=== PATIENT | male | born 1970 | race Caucasian/White ===

== ENCOUNTER 2017-12-12 06:59 | Inpatient (IN) ==
[2017-12-12] MEDS ORDERED: Famotidine 20 MG/2 ML VIAL IVP ONE (07:15)
[2017-12-12] MEDS ORDERED: predniSONE 20 MG TABLET PO ONE (07:15)
--- NOTE | 2017-12-12 07:32 | Emergency Department Note ---
Disposition Clinical Impression: ST segment depression, SIRS (systemic inflammatory response syndrome) Chest pain Qualifiers: Chest pain type: unspecified Qualified Code(s): R07.9 - Chest pain, unspecified Disposition: Admitted As Inpatient Condition: Undetermined Time of Disposition: 09:49 General Adult HPI - General Chief complaint: ED Chest Pain Stated complaint: Chest Pain, Rash, Skin Crawling Time Seen by Provider: 12/12/17 07:06 Source: patient, family Mode of arrival: ambulatory Limitations: no limitations Nursing Notes Reviewed: Yes Vital Signs Reviewed: Yes - History of Present Illness HPI Narrative: 46-year-old male with history of hypothyroidism, arrives to the emergency department with multiple complaints. The patient states that 2 days ago he started complaining of nausea and vomiting. No associated abdominal pain. Patient states that overnight he started experiencing a rash with some associated chest pain and dyspnea. The patient states upon arrival but his chest pain has subsided but he still feels mildly short of breath and is tachypneic upon walking to the bed. The patient states that his chest pain was more of a pressure sensation without any radiation and it was retrosternal. He states that his nausea and vomiting has resolved at this time as well. The rash is primarily located as the patient states on his trunk and bilateral upper extremities. There is some rash that was noted on his palms per his . There have been noted takes that the patient has found on him but is unsure if they bit him. He denies any fevers, chills but the patient is mildly diaphoretic on examination. Patient denies any other complaints at this time. He denies any abdominal pain, fevers, chills, unilateral weakness, paresthesias , headaches, nuchal rigidity or meningismus. Patient does admit to fevers to attending physician. Pain Scale: 9 - Related Data Home Medications Medication Instructions Recorded Confirmed Levothyroxine [Synthroid] 75 mcg PO 0630 12/12/17 12/12/17 Oxaprozin [Daypro] 600 mg PO BID 12/12/17 12/12/17 Travoprost [Travatan Z] 1 drop OP DAILY 12/12/17 12/12/17 Allergies Allergy/AdvReac Type Severity Reaction Status Date / Time aspirin Allergy Hypertensio Verified 12/12/17 07:01 n All systems ED: reviewed and negative except as stated. Constitutional: Reports: fever, weakness. Denies: chills ENT ED: Denies: throat pain, congestion, dysphagia Cardiovascular: Reports: chest pain, dyspnea on exertion, edema. Denies: palpitations, orthopnea, syncope Respiratory: Reports: dyspnea. Denies: cough, wheezes, sputum production Gastrointestinal: Reports: nausea, vomiting. Denies: abdominal pain, diarrhea, constipation, hematemesis, melena, hematochezia Genitourinary: Denies: urgency, dysuria Musculoskeletal: Reports: myalgia. Denies: back pain, neck pain, arthralgia Integumentary: Reports: rash. Denies: abrasion, lesions, change in hair/nails Neurological: Reports: weakness. Denies: headache, numbness, paresthesias, confusion Past Medical History - Past Medical History Attestation: Yes The following information was validated with the patient. Source: patient Medical history: Reports: thyroid disease Surgical history: Reports: appendectomy Psychiatric history: Reports: no psych history - Social History Smoking Status: Former smoker Alcohol use: Reports: occasionally Drug use: Reports: none Physical Exam - General Limitations: no limitations General appearance: alert, in no apparent distress - Head Head exam: atraumatic, normocephalic, normal inspection - Eye Eye exam: Present: normal appearance, PERRL, EOMI - ENT ENT exam: normal exam, normal oropharynx, mucous membranes moist - Neck Neck exam: Present: normal inspection, full ROM, trachea midline - Chest Chest inspection: Present: normal inspection, symmetric chest wall rise - Respiratory Respiratory exam: Present: normal lung sounds bilaterally - Cardiovascular Cardiovascular exam: Present: normal rhythm, tachycardia, normal heart sounds - Abdominal Exam Abdominal exam: Present: soft, Non-Tender, scar. Absent: tenderness, distention , guarding, rebound, rigidity, Martini's sign, Rovsing's sign, tenderness at McBurney's Point, pulsatile mass - Extremities Exam Extremities exam: Present: normal inspection, full ROM. Absent: tenderness, pedal edema - Neurological Exam Neurological exam: Present: alert, oriented X3, CN II-XII intact, normal gait - Skin Skin exam: Present: warm, dry, intact, normal color, rash (urticaria along bilateral UE and trunk.) Course Vital Signs Temperature 98.2 F 12/12/17 07:01 Pulse Rate 116 12/12/17 07:01 Respiratory Rate 22 07/04/18 07:01 Blood Pressure 132/90 12/12/17 07:01 O2 Sat by Pulse Oximetry 91 12/12/17 07:01 Temperature 98.6 F 12/12/17 11:07 Pulse Rate 90 12/12/17 11:07 Respiratory Rate 18 12/12/17 11:07 Blood Pressure 128/78 12/12/17 11:07 O2 Sat by Pulse Oximetry 97 12/12/17 11:16 Oxygen Delivery Oxygen Delivery Room Air,Nasal Cannula Medical Decision Making - MDM Narrative Medical decision making narrative: Patient's workup in the emergency department in restraints a leukocytosis with a neutrophil count. The patient has no elevation in troponin. He did have an elevation in d-dimer so a CTA was performed which demonstrated no pulmonary embolus but was noted some left lower lobe atelectasis without pneumonia. The patient's urinalysis was obtained which demonstrates no acute process. EKG does demonstrate some mild ST depression that is noted. Given the patient's chest pain we will admit the patient to the hospital to trend troponins and likely receive an echocardiogram. It is possible concern for diffuse ST depression but this does not appear consistent with pericarditis at this time. The patient likely has a viral illness given the patient's symptoms but infectious etiology of his symptoms cannot be eliminated at this time. The patient will be admitted for observation. Was made aware and agrees to plan. He was administered 3 L of IV fluids. Blood cultures and lactic acid were obtained. Lactic acid demonstrates no acute process. Patient is allergic to aspirin so he was not given any in the ED. Patient made aware and agrees to plan. No further questions or concerns. Hospitalist toribio. No other recommendations. Spoke to Dr. Rodrigeuz who had no further recommendations. Accepted by Dr. Grace. - Lab Data Lab results reviewed: Yes I reviewed the patient's lab results. Result diagrams: 12/12/17 07:14 12/12/17 07:14 Lab Results 12/12/17 12/12/17 12/12/17 Range/Units 07:14 07:14 07:14 WBC 16.2 H (4.3-11.1) K/mcL RBC 6.66 H (4.19-5.50) M/mcL Hgb 20.8 H (12.9-16.9) g/dL Hct 58.1 H (37.5-50.1) % MCV 87.2 (83.0-100.0) fL MCH 31.2 (28.0-33.3) pg MCHC 35.8 H (31.6-35.5) g/dL RDW 13.9 (11.5-14.5) % Plt Count 360 (140-400) K/mcL MPV 10.0 (9.4-12.4) fL Immature Gran % 0.6 (0-4) % Seg Neutrophils % 80.1 % Lymphocytes % 12.5 % Monocytes % 4.9 % Eosinophils % 1.6 % Basophils % 0.3 % Neutrophils # 13.0 H (1.6-8.9) K/mcL Lymphocytes # 2.0 (0.6-4.6) K/mcL Monocytes # 0.8 (0.0-1.3) K/mcL Eosinophils # 0.3 (0.0-0.6) K/mcL Basophils # 0.1 (0.0-0.2) K/mcL ESR (0-10) mm/hr D-Dimer 3362 H (0-500) ng/mLFEU Sodium 133 L (136-145) mEq/L Potassium 3.8 (3.5-5.1) mEq/L Chloride 107 (98-107) mEq/L Carbon Dioxide 16 L (23-29) mEq/L BUN 18 (6-20) mg/dL Creatinine 1.04 (0.70-1.30) mg/dL Est GFR ( Amer) > 60 (> 60) Est GFR (Non-Af Amer) > 60 (> 60) BUN/Creatinine Ratio 17 (6-26) Glucose 267 H (70-105) mg/dL Calculated Osmolality 287 (280-300) Lactic Acid (0.5-2.2) mmol/L Calcium 8.8 (8.6-10.3) mg/dL Total Bilirubin 0.5 (0.3-1.0) mg/dL AST 29 (13-39) Units/L ALT 54 H (7-52) Units/L Alkaline Phosphatase 76 (34-104) Units/L Troponin I < 0.03 (< 0.04) ng/mL Serum Total Protein 6.5 (6.4-8.9) g/dL Albumin 4.0 (3.5-5.7) g/dL Globulin 2.5 (2.4-3.5) g/dL Albumin/Globulin Ratio 1.6 (1.1-2.2) Urine Color (Yellow) Urine Clarity (Clear) Urine pH (5.0-8.0) pH Units Ur Specific [place] (1.010-1.025) Urine Protein (Neg-Trace) mg/dL Urine Glucose (UA) (Normal) mg/dL Urine Ketones (Negative) mg/dL Urine Blood (Negative) Urine Nitrite (Negative) Urine Bilirubin (Negative) Urine Urobilinogen (Normal) mg/dL Ur Leukocyte Esterase (Negative) Urine Microscopic RBC (0-3) per hpf Urine Microscopic WBC (0-3) per hpf Ur Squamous Epith Cells (None-Few) per lpf Urine Bacteria (None-Few) per hpf Hyaline Casts (None-Few) per lpf Ur Culture Indicated? (NO) Lyme Total Antibody (Negative) 12/12/17 12/12/17 12/12/17 Range/Units 07:27 07:58 09:13 WBC (4.3-11.1) K/mcL RBC (4.19-5.50) M/mcL Hgb (12.9-16.9) g/dL Hct (37.5-50.1) % MCV (83.0-100.0) fL MCH (28.0-33.3) pg MCHC (31.6-35.5) g/dL RDW (11.5-14.5) % Plt Count (140-400) K/mcL MPV (9.4-12.4) fL Immature Gran % (0-4) % Seg Neutrophils % % Lymphocytes % % Monocytes % % Eosinophils % % Basophils % % Neutrophils # (1.6-8.9) K/mcL Lymphocytes # (0.6-4.6) K/mcL Monocytes # (0.0-1.3) K/mcL Eosinophils # (0.0-0.6) K/mcL Basophils # (0.0-0.2) K/mcL ESR (0-10) mm/hr D-Dimer (0-500) ng/mLFEU Sodium (136-145) mEq/L Potassium (3.5-5.1) mEq/L Chloride (98-107) mEq/L Carbon Dioxide (23-29) mEq/L BUN (6-20) mg/dL Creatinine (0.70-1.30) mg/dL Est GFR ( Amer) (> 60) Est GFR (Non-Af Amer) (> 60) BUN/Creatinine Ratio (6-26) Glucose (70-105) mg/dL Calculated Osmolality (280-300) Lactic Acid 2.1 (0.5-2.2) mmol/L Calcium (8.6-10.3) mg/dL Total Bilirubin (0.3-1.0) mg/dL AST (13-39) Units/L ALT (7-52) Units/L Alkaline Phosphatase (34-104) Units/L Troponin I (< 0.04) ng/mL Serum Total Protein (6.4-8.9) g/dL Albumin (3.5-5.7) g/dL Globulin (2.4-3.5) g/dL Albumin/Globulin Ratio (1.1-2.2) Urine Color Yellow (Yellow) Urine Clarity Clear (Clear) Urine pH 6.0 (5.0-8.0) pH Units Ur Specific [place] > 1.030 H (1.010-1.025) Urine Protein Negative (Neg-Trace) mg/dL Urine Glucose (UA) Normal (Normal) mg/dL Urine Ketones Negative (Negative) mg/dL Urine Blood Trace H (Negative) Urine Nitrite Negative (Negative) Urine Bilirubin Negative (Negative) Urine Urobilinogen Normal (Normal) mg/dL Ur Leukocyte Esterase Negative (Negative) Urine Microscopic RBC 0-3 (0-3) per hpf Urine Microscopic WBC 3-5 H (0-3) per hpf Ur Squamous Epith Cells Few (None-Few) per lpf Urine Bacteria None Seen (None-Few) per hpf Hyaline Casts None Seen (None-Few) per lpf Ur Culture Indicated? NO (NO) Lyme Total Antibody Negative (Negative) 12/12/17 12/12/17 Range/Units 09:52 10:43 WBC (4.3-11.1) K/mcL RBC (4.19-5.50) M/mcL Hgb (12.9-16.9) g/dL Hct (37.5-50.1) % MCV (83.0-100.0) fL MCH (28.0-33.3) pg MCHC (31.6-35.5) g/dL RDW (11.5-14.5) % Plt Count (140-400) K/mcL MPV (9.4-12.4) fL Immature Gran % (0-4) % Seg Neutrophils % % Lymphocytes % % Monocytes % % Eosinophils % % Basophils % % Neutrophils # (1.6-8.9) K/mcL Lymphocytes # (0.6-4.6) K/mcL Monocytes # (0.0-1.3) K/mcL Eosinophils # (0.0-0.6) K/mcL Basophils # (0.0-0.2) K/mcL ESR 8 (0-10) mm/hr D-Dimer (0-500) ng/mLFEU Sodium (136-145) mEq/L Potassium (3.5-5.1) mEq/L Chloride (98-107) mEq/L Carbon Dioxide (23-29) mEq/L BUN (6-20) mg/dL Creatinine (0.70-1.30) mg/dL Est GFR ( Amer) (> 60) Est GFR (Non-Af Amer) (> 60) BUN/Creatinine Ratio (6-26) Glucose (70-105) mg/dL Calculated Osmolality (280-300) Lactic Acid 2.0 (0.5-2.2) mmol/L Calcium (8.6-10.3) mg/dL Total Bilirubin (0.3-1.0) mg/dL AST (13-39) Units/L ALT (7-52) Units/L Alkaline Phosphatase (34-104) Units/L Troponin I (< 0.04) ng/mL Serum Total Protein (6.4-8.9) g/dL Albumin (3.5-5.7) g/dL Globulin (2.4-3.5) g/dL Albumin/Globulin Ratio (1.1-2.2) Urine Color (Yellow) Urine Clarity (Clear) Urine pH (5.0-8.0) pH Units Ur Specific [place] (1.010-1.025) Urine Protein (Neg-Trace) mg/dL Urine Glucose (UA) (Normal) mg/dL Urine Ketones (Negative) mg/dL Urine Blood (Negative) Urine Nitrite (Negative) Urine Bilirubin (Negative) Urine Urobilinogen (Normal) mg/dL Ur Leukocyte Esterase (Negative) Urine Microscopic RBC (0-3) per hpf Urine Microscopic WBC (0-3) per hpf Ur Squamous Epith Cells (None-Few) per lpf Urine Bacteria (None-Few) per hpf Hyaline Casts (None-Few) per lpf Ur Culture Indicated? (NO) Lyme Total Antibody (Negative) - Radiology Data Radiology results reviewed: Yes I reviewed the patient's radiology results. Chest X-Ray 12/12/17 07:14 IMPRESSION: No radiographic evidence of acute cardiopulmonary process. D/ / 12/12/2017 07:56:53 Jack Powell MD / vasquez Interpreting Provider: Jack Powell MD Chest CTA 12/12/17 07:57 IMPRESSION: No evidence of pulmonary embolism or acute pulmonary abnormality. Slight left lower lobe atelectasis. D/ / Neyamr Reeves MD / Neymar Reeves MD Interpreting Provider: Neymar Reeves MD - EKG Data EKG #1 EKG attestation: Yes I reviewed and interpreted this EKG. EKG results narrative: Heart rate [address]pm. Sin[address] tachy[address]. Mild ST depression noted in leads 2, aVF, V3 through V6. No ST elevation noted. Right bundle branch block noted. EKG #2. Heart rate 114. Sinus tachycardia. No ST elevation noted. Right bundle branch block noted.
[2017-12-12 07:40] LABS: Basophils # 0.1 K/mcL (0.0-0.2); Basophils % 0.3 %; Eosinophils # 0.3 K/mcL (0.0-0.6); Eosinophils % 1.6 %; Hemoglobin 20.8 g/dL (12.9-16.9); Immature Granulocytes % 0.6 % (0-4); Lymphocytes % 12.5 %; Mean Corpuscular HGB Conc 35.8 g/dL (31.6-35.5); Mean Corpuscular Hemoglobin 31.2 pg (28.0-33.3); Mean Corpuscular Volume 87.2 fL (83.0-100.0); Monocytes # 0.8 K/mcL (0.0-1.3); Monocytes % 4.9 %; Platelet Count 360 K/mcL (140-400); Red Blood Count 6.66 M/mcL (4.19-5.50); Red Cell Distribution Width 13.9 % (11.5-14.5); Segmented Neutrophils % 80.1 %
[2017-12-12 07:41] LABS: Hematocrit 58.1 % (37.5-50.1)
--- NOTE | 2017-12-12 07:45 | Emergency Department Note ---
Disposition Clinical Impression: ST segment depression, SIRS (systemic inflammatory response syndrome) Chest pain Qualifiers: Chest pain type: unspecified Qualified Code(s): R07.9 - Chest pain, unspecified Disposition: Admitted As Inpatient General Adult HPI - General Chief complaint: ED Chest Pain Stated complaint: Chest Pain, Rash, Skin Crawling Time Seen by Provider: 12/12/17 07:06 Source: patient, family Mode of arrival: ambulatory Limitations: no limitations - History of Present Illness Pain Scale: 9 - Related Data Home Medications Medication Instructions Recorded Confirmed Levothyroxine [Synthroid] 75 mcg PO 0630 12/12/17 12/12/17 Oxaprozin [Daypro] 600 mg PO BID 12/12/17 12/12/17 Travoprost [Travatan Z] 1 drop OP DAILY 12/12/17 12/12/17 Allergies Allergy/AdvReac Type Severity Reaction Status Date / Time aspirin Allergy Hypertensio Verified 12/12/17 07:01 n Constitutional: Reports: weakness. Denies: fever, chills ENT ED: Denies: throat pain, congestion, dysphagia Cardiovascular: Reports: chest pain, dyspnea on exertion, edema. Denies: palpitations, orthopnea, syncope Respiratory: Reports: dyspnea. Denies: cough, wheezes, sputum production Gastrointestinal: Reports: nausea, vomiting. Denies: abdominal pain, diarrhea, constipation, hematemesis, melena, hematochezia Genitourinary: Denies: urgency, dysuria Musculoskeletal: Reports: myalgia. Denies: back pain, neck pain, arthralgia Integumentary: Reports: rash. Denies: abrasion, lesions, change in hair/nails Neurological: Reports: weakness. Denies: headache, numbness, paresthesias, confusion Past Medical History - Past Medical History Medical history: Reports: thyroid disease Surgical history: Reports: appendectomy Psychiatric history: Reports: no psych history - Social History Smoking Status: Former smoker Alcohol use: Reports: occasionally Drug use: Reports: none Physical Exam - General Limitations: no limitations General appearance: alert, in no apparent distress Course Vital Signs Temperature 98.2 F 12/12/17 07:01 Pulse Rate 116 12/12/17 07:01 Respiratory Rate 22 12/12/17 07:01 Blood Pressure 132/90 12/12/17 07:01 O2 Sat by Pulse Oximetry 91 12/12/17 07:01 Temperature 98.6 F 12/12/17 11:07 Pulse Rate 90 12/12/17 11:07 Respiratory Rate 18 12/12/17 11:07 Blood Pressure 128/78 12/12/17 11:07 O2 Sat by Pulse Oximetry 97 12/12/17 11:16 Oxygen Delivery Oxygen Delivery Room Air,Nasal Cannula Medical Decision Making - Lab Data Result diagrams: 12/12/17 07:14 12/12/17 07:14 Lab Results 12/12/17 12/12/17 12/12/17 Range/Units 07:14 07:14 07:14 WBC 16.2 H (4.3-11.1) K/mcL RBC 6.66 H (4.19-5.50) M/mcL Hgb 20.8 H (12.9-16.9) g/dL Hct 58.1 H (37.5-50.1) % MCV 87.2 (83.0-100.0) fL MCH 31.2 (28.0-33.3) pg MCHC 35.8 H (31.6-35.5) g/dL RDW 13.9 (11.5-14.5) % Plt Count 360 (140-400) K/mcL MPV 10.0 (9.4-12.4) fL Immature Gran % 0.6 (0-4) % Seg Neutrophils % 80.1 % Lymphocytes % 12.5 % Monocytes % 4.9 % Eosinophils % 1.6 % Basophils % 0.3 % Neutrophils # 13.0 H (1.6-8.9) K/mcL Lymphocytes # 2.0 (0.6-4.6) K/mcL Monocytes # 0.8 (0.0-1.3) K/mcL Eosinophils # 0.3 (0.0-0.6) K/mcL Basophils # 0.1 (0.0-0.2) K/mcL ESR (0-10) mm/hr D-Dimer 3362 H (0-500) ng/mLFEU Sodium 133 L (136-145) mEq/L Potassium 3.8 (3.5-5.1) mEq/L Chloride 107 (98-107) mEq/L Carbon Dioxide 16 L (23-29) mEq/L BUN 18 (6-20) mg/dL Creatinine 1.04 (0.70-1.30) mg/dL Est GFR ( Amer) > 60 (> 60) Est GFR (Non-Af Amer) > 60 (> 60) BUN/Creatinine Ratio 17 (6-26) Glucose 267 H (70-105) mg/dL Calculated Osmolality 287 (280-300) Lactic Acid (0.5-2.2) mmol/L Calcium 8.8 (8.6-10.3) mg/dL Total Bilirubin 0.5 (0.3-1.0) mg/dL AST 29 (13-39) Units/L ALT 54 H (7-52) Units/L Alkaline Phosphatase 76 (34-104) Units/L Troponin I < 0.03 (< 0.04) ng/mL Serum Total Protein 6.5 (6.4-8.9) g/dL Albumin 4.0 (3.5-5.7) g/dL Globulin 2.5 (2.4-3.5) g/dL Albumin/Globulin Ratio 1.6 (1.1-2.2) Urine Color (Yellow) Urine Clarity (Clear) Urine pH (5.0-8.0) pH Units Ur Specific [place] (1.010-1.025) Urine Protein (Neg-Trace) mg/dL Urine Glucose (UA) (Normal) mg/dL Urine Ketones (Negative) mg/dL Urine Blood (Negative) Urine Nitrite (Negative) Urine Bilirubin (Negative) Urine Urobilinogen (Normal) mg/dL Ur Leukocyte Esterase (Negative) Urine Microscopic RBC (0-3) per hpf Urine Microscopic WBC (0-3) per hpf Ur Squamous Epith Cells (None-Few) per lpf Urine Bacteria (None-Few) per hpf Hyaline Casts (None-Few) per lpf Ur Culture Indicated? (NO) Lyme Total Antibody (Negative) 12/12/17 12/12/17 12/12/17 Range/Units 07:27 07:58 09:13 WBC (4.3-11.1) K/mcL RBC (4.19-5.50) M/mcL Hgb (12.9-16.9) g/dL Hct (37.5-50.1) % MCV (83.0-100.0) fL MCH (28.0-33.3) pg MCHC (31.6-35.5) g/dL RDW (11.5-14.5) % Plt Count (140-400) K/mcL MPV (9.4-12.4) fL Immature Gran % (0-4) % Seg Neutrophils % % Lymphocytes % % Monocytes % % Eosinophils % % Basophils % % Neutrophils # (1.6-8.9) K/mcL Lymphocytes # (0.6-4.6) K/mcL Monocytes # (0.0-1.3) K/mcL Eosinophils # (0.0-0.6) K/mcL Basophils # (0.0-0.2) K/mcL ESR (0-10) mm/hr D-Dimer (0-500) ng/mLFEU Sodium (136-145) mEq/L Potassium (3.5-5.1) mEq/L Chloride (98-107) mEq/L Carbon Dioxide (23-29) mEq/L BUN (6-20) mg/dL Creatinine (0.70-1.30) mg/dL Est GFR ( Amer) (> 60) Est GFR (Non-Af Amer) (> 60) BUN/Creatinine Ratio (6-26) Glucose (70-105) mg/dL Calculated Osmolality (280-300) Lactic Acid 2.1 (0.5-2.2) mmol/L Calcium (8.6-10.3) mg/dL Total Bilirubin (0.3-1.0) mg/dL AST (13-39) Units/L ALT (7-52) Units/L Alkaline Phosphatase (34-104) Units/L Troponin I (< 0.04) ng/mL Serum Total Protein (6.4-8.9) g/dL Albumin (3.5-5.7) g/dL Globulin (2.4-3.5) g/dL Albumin/Globulin Ratio (1.1-2.2) Urine Color Yellow (Yellow) Urine Clarity Clear (Clear) Urine pH 6.0 (5.0-8.0) pH Units Ur Specific [place] > 1.030 H (1.010-1.025) Urine Protein Negative (Neg-Trace) mg/dL Urine Glucose (UA) Normal (Normal) mg/dL Urine Ketones Negative (Negative) mg/dL Urine Blood Trace H (Negative) Urine Nitrite Negative (Negative) Urine Bilirubin Negative (Negative) Urine Urobilinogen Normal (Normal) mg/dL Ur Leukocyte Esterase Negative (Negative) Urine Microscopic RBC 0-3 (0-3) per hpf Urine Microscopic WBC 3-5 H (0-3) per hpf Ur Squamous Epith Cells Few (None-Few) per lpf Urine Bacteria None Seen (None-Few) per hpf Hyaline Casts None Seen (None-Few) per lpf Ur Culture Indicated? NO (NO) L[place] Total Antibody Negative (Negative) 12/12/17 12/12/17 Range/Units 09:52 10:43 WBC (4.3-11.1) K/mcL RBC (4.19-5.50) M/mcL Hgb (12.9-16.9) g/dL Hct (37.5-50.1) % MCV (83.0-100.0) fL MCH (28.0-33.3) pg MCHC (31.6-35.5) g/dL RDW (11.5-14.5) % Plt Count (140-400) K/mcL MPV (9.4-12.4) fL Immature Gran % (0-4) % Seg Neutrophils % % Lymphocytes % % Monocytes % % Eosinophils % % Basophils % % Neutrophils # (1.6-8.9) K/mcL Lymphocytes # (0.6-4.6) K/mcL Monocytes # (0.0-1.3) K/mcL Eosinophils # (0.0-0.6) K/mcL Basophils # (0.0-0.2) K/mcL ESR 8 (0-10) mm/hr D-Dimer (0-500) ng/mLFEU Sodium (136-145) mEq/L Potassium (3.5-5.1) mEq/L Chloride (98-107) mEq/L Carbon Dioxide (23-29) mEq/L BUN (6-20) mg/dL Creatinine (0.70-1.30) mg/dL Est GFR ( Amer) (> 60) Est GFR (Non-Af Amer) (> 60) BUN/Creatinine Ratio (6-26) Glucose (70-105) mg/dL Calculated Osmolality (280-300) Lactic Acid 2.0 (0.5-2.2) mmol/L Calcium (8.6-10.3) mg/dL Total Bilirubin (0.3-1.0) mg/dL AST (13-39) Units/L ALT (7-52) Units/L Alkaline Phosphatase (34-104) Units/L Troponin I (< 0.04) ng/mL Serum Total Protein (6.4-8.9) g/dL Albumin (3.5-5.7) g/dL Globulin (2.4-3.5) g/dL Albumin/Globulin Ratio (1.1-2.2) Urine Color (Yellow) Urine Clarity (Clear) Urine pH (5.0-8.0) pH Units Ur Specific [place] (1.010-1.025) Urine Protein (Neg-Trace) mg/dL Urine Glucose (UA) (Normal) mg/dL Urine Ketones (Negative) mg/dL Urine Blood (Negative) Urine Nitrite (Negative) Urine Bilirubin (Negative) Urine Urobilinogen (Normal) mg/dL Ur Leukocyte Esterase (Negative) Urine Microscopic RBC (0-3) per hpf Urine Microscopic WBC (0-3) per hpf Ur Squamous Epith Cells (None-Few) per lpf Urine Bacteria (None-Few) per hpf Hyaline Casts (None-Few) per lpf Ur Culture Indicated? (NO) Lyme Total Antibody (Negative) Attestation Statement - Attestation Attestation: I examined this patient and my medical decision-making was reviewed with the Resident Physician. I agree with the documented findings, disposition and treatment plan as described except to the extent set forth below. Patient was in so the ED with chief complaint of not feeling well. Symptoms started with vomiting and diarrhea a few days ago. Diarrhea has persisted. Vomiting stopped but he still dry heaving. Intermittent fevers. Now he has developed a rash. No other people with similar symptoms. He does admit to having ticks on them but none that he knows were attached. He also admits to mosquito bites. He had some chest pain but he thought that was from dry heaving. Short of breath. Swelling in his hands and feet. On examination he does not appear to be in any acute distress. He does have some pitting edema to his ankles and hands. Urticarial rash to his antecubital fossa. Maculopapular rash to the trunk with some target lesions. Plan. Septic workup. He is afebrile here. He is tachycardic. Oxygen saturation 91%. EKG with some ST depressions with no old for comparison. Likely admission. Patient has a leukocytosis. No source found. Possibly viral gastroenteritis. Rash is improved. ST depressions have improved with IV hydration. Patient is admitted. Chest X-Ray 12/12/17 07:14 IMPRESSION: No radiographic evidence of acute cardiopulmonary process. D/ / 12/12/2017 07:56:53 Jack Powell MD / [email or web address] Interpreting Provider: Jack Powell MD Chest CTA 12/12/17 07:57 IMPRESSION: No evidence of pulmonary embolism or acute pulmonary abnormality. Slight left lower lobe atelectasis. D/ / Neymar Reeves MD / Neymar Reeves MD Interpreting Provider: Neymar Reeves MD
[2017-12-12] MEDS ORDERED: Isovue-370 500 ML INFUS..BTL IV ONE ×2 (07:57→10:15)
[2017-12-12] MEDS: 0.9 % Sodium Chloride 1,000 ML IVC SCH ×5 (07:58→23:17)
[2017-12-12 08:02] LABS: Alanine Aminotransferase 54 Units/L (7-52); Albumin/Globulin Ratio 1.6 (1.1-2.2); Alkaline Phosphatase 76 Units/L (34-104); Aspartate Amino Transferase 29 Units/L (13-39); BUN/Creatinine Ratio 17 (6-26); Bilirubin,Total 0.5 mg/dL (0.3-1.0); Blood Urea Nitrogen 18 mg/dL (6-20); Calcium 8.8 mg/dL (8.6-10.3); Carbon Dioxide 16 mEq/L (23-29); Chloride 107 mEq/L (98-107); Globulin 2.5 g/dL (2.4-3.5); Glucose 267 mg/dL (70-105); Osmolality,Calculated 287 (280-300); Potassium 3.8 mEq/L (3.5-5.1); Sodium 133 mEq/L (136-145); Total Protein 6.5 g/dL (6.4-8.9); eGFR For African Americans > 60 (> 60); eGFR For Non-African Americans > 60 (> 60)
[2017-12-12 08:03] LABS: Troponin I < 0.03 ng/mL (< 0.04)
[2017-12-12] MEDS ORDERED: 0.9 % Sodium Chloride 1,000 ML IVC ONE (08:06)
[2017-12-12 09:26] LABS: Bilirubin,Urine Negative (Negative); Blood,Urine Trace (Negative); Clarity,Urine Clear (Clear); Color,Urine Yellow (Yellow); Glucose,Urine (UA) Normal (Normal); Ketones,Urine Negative (Negative); Leukocyte Esterase,Urine Negative (Negative); Nitrite,Urine Negative (Negative); Protein,Urine Negative (Neg-Trace); Specific Gravity,Urine > 1.030 (1.010-1.025); Urobilinogen,Urine Normal (Normal)
[2017-12-12 09:29] LABS: Bacteria,Urine None Seen per hpf (None-Few); Hyaline Casts,Urine None Seen per lpf (None-Few); RBC,Urine 0-3 per hpf (0-3); Squamous Epithelial Cell,Urine Few per lpf (None-Few)
[2017-12-12] MEDS ORDERED: Piperacillin/Tazobactam 3.375 GM in 0.9 % Sodium Chloride Mini Bag 100 ML IVPB ONE (09:47)
[2017-12-12] MEDS ORDERED: Naloxone 0.4 MG/ML INJ IVP PRN (09:52)
[2017-12-12] MEDS ORDERED: Doxycycline 100 MG CAPSULE PO SCH (10:00)
--- NOTE | 2017-12-12 10:23 | Internal Med History&Physical ---
Date of Encounter: 12/12/17 Time of Encounter: 10:00 Internal Medicine - H&P: HPI Chief complaint: Nausea, vomiting, diarrhea since sunday evening History of present illness: Mr. Vega is a 46 year old male with no significant pmh presenting with complaints of nausea, vomiting and diarrhea since sunday evening and a rash today. Patient notes he had a meat sub at about 12 noon on sunday after which he began to have severe symtoms with multiple episode s of diarrhea ,nausea and vomiting. Last episode was this am. His says she also noticed a rash this am around the hands, inner forearm, abdomen and back and that's why he came into the ER. He also complains of subjective fevers. [place] also [place] exposed to ticks all though, he doesn't recall any specific tick bite. In the Er he was nted to be tachycardic with EKG showing some possible st changes and cardiolgy was consulted. He was also given a cocktail of steroids and antihistamines with improvement in the rash. Past Med Surg Social Fam HX - Past Medical History Medical history: thyroid disease Psychiatric history: no psych history - Past Surgical History Surgical History: appendectomy - Social History Smoking Status: Former smoker Alcohol use: occasionally Drug use: none Internal Medicine - H&P: Meds Levothyroxine [Synthroid] 75 mcg PO 0630 12/12/17 [History] Oxaprozin [Daypro] 600 mg PO BID 12/12/17 [History] Travoprost [Travatan Z] 1 drop OP DAILY 12/12/17 [History] 3 Allergy/AdvReac Type Severity Reaction Status Date / Time aspirin Allergy Hypertensio Verified 12/12/17 07:01 n All Systems PM: A 10-system review of systems was performed and is negative for pertinent findings except as documented above in the HPI. - Constitutional Constitutional: fever(s), malaise - EENT Eyes: no change in vision, no discharge, no pain, no photophobia Ears: no ear discharge, no ear pain, no tinnitus Nose, mouth and throat: no dysphagia, no nasal discharge, no neck pain, no sore throat - Cardiovascular Cardiovascular ROS IM: no chest pain, no diaphoresis, no dyspnea, no lightheadedness, no palpitations, no syncope - Respiratory Respiratory: no cough, no dyspnea, no wheezing, no excessive phlegm production - Gastrointestinal Gastrointestinal: abdominal pain, diarrhea, no hematemesis, no hematochezia, no melena, no nausea, no vomiting - Musculoskeletal Musculoskeletal ROS IM: no numbness, no tingling - Integumentary Integumentary IM: no rash, no unusual bruising - Neurological Neurological ROS: no confusion, no convulsions, no focal weakness, no numbness, no tingling, no tremor(s) - Hematologic/Lymphatic Hematologic/Lymphatic: no easy bruising - Constitutional Vitals: Temp Pulse Resp BP Pulse Ox 98.2 F 119 18 135/87 97 12/12/17 07:01 12/12/17 09:00 12/12/17 09:00 12/12/17 09:00 12/12/17 09:00 - Head Head exam: Present: atraumatic, normocephalic - Eye Eye exam: Present: PERRL, conjuntiva pink, sclera anicteric Pupils: Present: PERRL - Neck Neck exam general surgery: Present: supple, trachea midline. Absent: lymphadenopathy - Respiratory Respiratory exam: Present: CTAB. Absent: accessory muscle use, rales, rhonchi, wheezes - Cardiovascular Cardiovascular exam: Present: RRR, +S1, +S2. Absent: diastolic murmur, gallop, rubs, systolic murmur - GI/Abdominal GI/Abdominal exam: Present: normal bowel sounds, soft, no peritoneal signs. Absent: distended, tenderness - Extremities Exam Extremities exam: Present: warm, radial pulses palpable and symmetrical. Absent : calf tenderness, cyanotic, pedal edema Additional comments: rash noted on forearms - Neurological Exam Neurological exam: Present: CN II-XII intact, oriented X3, no focal deficits. Absent: pronater drift, facial droop, speech deficit - Skin Skin exam: Present: dry, intact Internal Med - H&P Results - Labs CBC & Chem 7: 12/12/17 07:14 12/12/17 07:14 - Assessment and plan (1) SIRS (systemic inflammatory response syndrome) Current Visit: Yes Status: Acute Assessment and plan: SIRS r/o Sepsis, WBC 16, tachycardic. Possible source. Gastroenteritis. Obtain stool studies with GI panel and c diff. Follow blood cultures. Follow up ESR and CRP. Start on ciprofloxacin and flagyl. IC consulted and recommended adding doxycycline to antibiotic regimen and doing a stool pcr for possible EHEC vs salmonella typhi in light of diarrhea, leukocytosis and rash. Will follow up ID recs (2) Acute gastroenteritis Current Visit: Yes Status: Acute Assessment and plan: See #1. Follow up stool studies and ct abdomen. Continue antibiotics (3) Rash and nonspecific skin eruption Current Visit: Yes Status: Acute Assessment and plan: Unclear etiology. Seems to be resolving with prednisone and antihistamines. Continue to monitor. Follow up [facility] studies due to exposure to ticks. Lyme titers negative. (4) ST segment depression Current Visit: Yes Status: Acute Assessment and plan: Cardiology on board. Had new EKG showing no st segment depression Possibly demand ischemia. Follow up cardiology recs (5) Thyroid disease Current Visit: Yes Status: Acute Assessment and plan: Unclear history. Follow up TSH as possible etiolgy for tachycardia (6) DVT prophylaxis Current Visit: Yes Status: Acute Assessment and plan: Heparin sc (7) Erythrocytosis Current Visit: Yes Status: Acute Assessment and plan: May be secondary to dehydration. Hydrate and repeat labs - Time Spent With Patient Total time spent is greater than 50% in coordination of care (as documented) at patient's floor/unit and/or counseling patient:
[2017-12-12] MEDS ORDERED: Ondansetron 4 MG/2 ML VIAL IVP PRN (10:32)
[2017-12-12] MEDS ORDERED: *HR* Morphine 2 MG/ML SYRINGE IVP PRN (10:34)
[2017-12-12] MEDS: Doxycycline 100 MG CAPSULE PO SCH ×2 (11:56→21:30)
[2017-12-12 12:07] LABS: C-Reactive Protein 10 mg/L (Less than 10)
[2017-12-12 13:39] LABS: Thyroid Stimulating Hormone 4.236 mcIU/mL (0.340-5.600)
[2017-12-12] MEDS: MetroNIDAZOLE 500 MG/100 ML 500 MG/100 ML BAG IVPB SCH ×2 (17:31→23:17)
[2017-12-12] MEDS ORDERED: Piperacillin/Tazobactam 3.375 GM in 0.9 % Sodium Chloride Mini Bag 100 ML IVPB SCH (18:00)
[2017-12-13 00:01] LABS: Adenovirus F 40/41 PCR Not detected (Not detect); Astrovirus PCR Not detected (Not detect); C.difficile Toxin A/B by PCR Not detected (Not detect); Campylobacter by PCR Not detected (Not detect); Cryptosporidium by PCR Not detected (Not detect); Cyclospora cayetanensis PCR Not detected (Not detect); E. coli O157 by PCR Not detected (Not detect); Entamoeba histolytica PCR Not detected (Not detect); Enteroaggregative E.coli(EAEC) Not detected (Not detect); Enteropathogenic E.coli(EPEC) Not detected (Not detect); Enterotoxigenic E.coli (ETEC) Not detected (Not detect); Giardia lamblia PCR Not detected (Not detect); Norovirus GI/GII PCR Not detected (Not detect); Plesiomonas shigelloides PCR Not detected (Not detect); Rotavirus A PCR Not detected (Not detect); Salmonella PCR Not detected (Not detect); Sapovirus PCR Not detected (Not detect); Shig/EnteroinvasiveE coli EIEC Not detected (Not detect); Shigalike tox-prod E coli STEC Not detected (Not detect); Vibrio PCR Not detected (Not detect); Vibrio cholerae PCR Not detected (Not detect); Yersinia enterocolitica PCR Not detected (Not detect)
[2017-12-13 04:44] LABS: Basophils % 0.3 %; Eosinophils # 0.8 K/mcL (0.0-0.6); Eosinophils % 7.4 %; Hematocrit 42.8 % (37.5-50.1); Immature Granulocytes % 0.4 % (0-4); Lymphocytes # 2.9 K/mcL (0.6-4.6); Lymphocytes % 25.3 %; Mean Corpuscular HGB Conc 34.6 g/dL (31.6-35.5); Mean Corpuscular Volume 89.7 fL (83.0-100.0); Mean Platelet Volume 9.8 fL (9.4-12.4); Monocytes # 0.9 K/mcL (0.0-1.3); Neutrophils # 6.6 K/mcL (1.6-8.9); Platelet Count 234 K/mcL (140-400); Red Blood Count 4.77 M/mcL (4.19-5.50); Red Cell Distribution Width 13.1 % (11.5-14.5); Segmented Neutrophils % 58.6 %
[2017-12-13 04:50] LABS: Hemoglobin 14.8 g/dL (12.9-16.9)
[2017-12-13 05:07] LABS: BUN/Creatinine Ratio 13 (6-26); Blood Urea Nitrogen 11 mg/dL (6-20); Calcium 8.1 mg/dL (8.6-10.3); Carbon Dioxide 21 mEq/L (23-29); Chloride 111 mEq/L (98-107); Glucose 122 mg/dL (70-105); Magnesium 1.5 mg/dL (1.6-2.6); Osmolality,Calculated 287 (280-300); Potassium 3.5 mEq/L (3.5-5.1); Sodium 138 mEq/L (136-145); eGFR For African Americans > 60 (> 60); eGFR For Non-African Americans > 60 (> 60)
[2017-12-13] MEDS: *HR* Heparin 5,000 UNIT/ML VIAL SQ SCH ×2 (06:52→18:35)
[2017-12-13] MEDS: MetroNIDAZOLE 500 MG/100 ML 500 MG/100 ML BAG IVPB SCH ×2 (07:50→15:54)
[2017-12-13] MEDS: 0.9 % Sodium Chloride 1,000 ML IVC SCH ×2 (07:51→18:34)
[2017-12-13] MEDS: Doxycycline 100 MG CAPSULE PO SCH ×2 (07:51→19:35)
--- NOTE | 2017-12-13 09:54 | Infectious Disease Consult ---
Date of Encounter: 12/13/17 Time of Encounter: 09:52 Assessment and Plan (1) Sepsis Status: Acute Assessment and plan: 2/4 SIRS criteria on admission; leukocytosis 16.2, tachycardia - Unknown source at this time; possible gastroenteritis - Stool panel was negative; Stool PCR, r/o EHEC vs salmonella typhii - 3 sets of blood CX are pending - Currently on doxycycline 100 mg PO BID and Flagyl 500 mg IV Q8; day 2 of antibiotics Qualifiers: Sepsis type: sepsis due to unspecified organism Qualified Code(s): A41.9 - Sepsis, unspecified organism (2) Acute gastroenteritis Status: Acute Assessment and plan: - CT scan of the abdomen and pelvis demonstrated changes associated with fatty liver disease - No acute abdominal process was found - Stool panel negative (3) Rash and nonspecific skin eruption Status: Resolved Assessment and plan: Patient presented with a rash on the trunk and upper extremities; etiology unknown - He reports that he lives in the [facility]; admits to finding several ticks on his person - He is unsure if he was bitten - In the emergency department, patient was given prednisone and antihistamines; rash subsequently improved - Lyme titers have been negative - Continue doxycycline (4) ST segment depression Status: Acute Assessment and plan: EKG performed in the emergency department demonstrated mild ST depression noted in leads 2, aVF, V3 through V6; Right bundle branch block was present; no ST elevation present, Sinus tachycardia - Cardiology is consulted (5) Thyroid disease Status: Acute Assessment and plan: - Management per primary team Infectious Disease HPI - Data of Consult Consult date: 12/13/17 Requesting Physician: Corinna Contreras MD Primary Care Provider: Jasprete Curtis, - Consult Narrative Reason for consult: Nausea/vomiting, maculopapular rash History of present illness: Patient is a 46-year-old male who presented to the ED on 12/12/17 with a chief complaint of N/V/D and rash on the trunk. We are consulted for antibiotic regimen recommendations regarding patients rash and possible gastroenteritis. Patient has PMH of hypothyroidism who presented to ED with the chief complaint of malaise, N/V, and a rash on his trunk and b/l extremities. Patient reported that his vomiting and diarrhea started a few days prior. He complained of intermittent fevers. Also reported having SOB exacerbated by exertion and mild chest discomfort described as a pressure sensation. He reported that he had a meat sub at approximately 12 PM on Sunday after which he began to have these severe symptoms of diarrhea, n/v. [place]; admitted to having found several ticks on him; unsure if they had been him or not. Patient had pitting edema to his ankles and hands on physical examination. Urticarial rash was present on antecubital fossa. Macular papular rash was present on the trunk with some target lesions. Patient was mildly diaphoretic. He denied having any abdominal pain, chills, weakness, paresthesias, headaches , or nuchal rigidity. Vital signs on arrival were as follows: Temperature 98.2, HR 116, RR 22, BP 132/ 90, O2 sat 91. CXR showed no acute process. CTA of the chest showed no evidence of PE, slight LLL atelectasis. EKG demonstrated ST depressions. Laboratory analysis demonstrated an elevated white count of 16.2 with left shift. D-dimer was elevated at 3362. Troponin was negative. UA unremarkable. 3 sets of blood CX are currently pending. He was given a combination of prednisone and Benadryl for his rash; subsequently improved. He was also given 3 L of IV fluids. Blood cultures were obtained. Cardiology was consulted for patients EKG changes. Was initially started on Zosyn; Currently on doxycycline 100 mg by mouth twice a day and Flagyl 500 mg IV every 8; day 2 of antibiotics. Borrelia PCR pending. CT scan of the abdomen and pelvis demonstrated changes consistent with fatty liver disease. Stool panel was ordered; was negative. Lyme total antibody was also negative. Patient was seen and examined at bedside. Patient reports that he is feeling much better than he did on admission. He denies having any nausea, vomiting, diarrhea, fever, or chills. Reports that the rash that he initially had on his trunk and his upper extremities has since resolved. He does state that he has some residual redness in his chest area. Patient notes that he did not notice any target rashes when his rash first started. [place]; has noted some ticks on his neck and back, but does not feel that he was bitten. Denies having any history of Lyme's disease or RMSF. Patient is currently retired; worked at [employer]. Denies the use of tobacco, occasionally drinks alcohol. Denies having any recent travel or sick contacts. CC: Corinna Contreras MD Past Med Surg Social Fam HX - Past Medical History Medical history: thyroid disease Additional medical history: arthritis, dergenative disk Psychiatric history: no psych history - Past Surgical History Surgical History: appendectomy - Social History Smoking Status: Former smoker Alcohol use: occasionally Drug use: none Infectious Disease-CN:Meds Levothyroxine [Synthroid] 75 mcg PO 0630 12/12/17 [History] Oxaprozin [Daypro] 600 mg PO BID 12/12/17 [History] Travoprost [Travatan Z] 1 drop OP DAILY 12/12/17 [History] 3 Allergy/AdvReac Type Severity Reaction Status Date / Time aspirin Allergy Hypertensio Verified 12/12/17 07:01 n Review of systems: 10 point review of systems done, negative other for what mentioned in history of present illness - Constitutional Constitutional: Absent: chills, fever(s), lethargy, malaise, weakness - Respiratory Respiratory: Absent: dyspnea, wheezing, snoring, stridor - Musculoskeletal Musculoskeletal: Absent: arthralgias, myalgias, tingling - Integumentary Integumentary: Present: rash (Patient has red discoloration across his chest and upper extremities.). Absent: dry skin, pruritus, skin ulcer, sores, swelling Exam - Constitutional Vitals: Temp Pulse Resp BP Pulse Ox 97.7 F 73 16 126/76 95 12/13/17 06:54 12/13/17 06:54 12/13/17 06:54 12/13/17 06:54 12/13/17 06:54 General appearance: no acute distress Exam: Does not appear toxic. Pleasant - Head Head exam: Present: atraumatic, normocephalic - Eye Eye exam: Present: EOMI, PERRL, sclera anicteric - ENT ENT exam: Present: mucous membranes moist Additional comments: No oral lesions - Neck Neck exam: Present: full ROM. Absent: meningismus - Respiratory Respiratory exam: Present: CTAB. Absent: rales, rhonchi, stridor, wheezes, tachypnea - Cardiovascular Cardiovascular exam: Present: RRR, +S1, +S2. Absent: diastolic murmur, systolic murmur - GI/Abdominal GI/Abdominal exam: Present: soft. Absent: tenderness - Extremities Exam Extremities exam: Present: full ROM. Absent: pedal edema - Back Exam Back exam: Absent: CVA tenderness (L), CVA tenderness (R) - Neurological Exam Neurological exam: Present: alert, oriented X3, no focal deficits - Psychiatric Psychiatric exam: Present: normal affect, normal mood - Skin Skin exam: Present: dry, intact, rash Infectious Disease CN: Results - Labs CBC & Chem 7: 12/13/17 04:08 12/13/17 04:08 Serology: Serology 12/12/17 Range/Units 22:38 Stl C. cayetanensis PCR Not detected (Not detect) Stool Rotavirus A PCR Not detected (Not detect) Stl Adenov F 40/41 PCR Not detected (Not detect) Stool Astrovirus (PCR) Not detected (Not detect) Stool Campylobacter PCR Not detected (Not detect) Stl C. diff Tox A/B PCR Not detected (Not detect) Stool Cryptosporidium PCR Not detected (Not detect) Stl Sh Tox Pr E STEC PCR Not detected (Not detect) Stool E coli O157 PCR Not detected (Not detect) Stl Enterotoxigenic E PCR Not detected (Not detect) Stool EPEC (PCR) Not detected (Not detect) Stool EAEC (PCR) Not detected (Not detect) Stl E. histolytica PCR Not detected (Not detect) Stool Giardia Lamblia PCR Not detected (Not detect) Stool Salmonella PCR Not detected (Not detect) Stool Sapovirus (PCR) Not detected (Not detect) Stl P. shigelloides PCR Not detected (Not detect) Stl Shigella/EIEC PCR Not detected (Not detect) St Y.enterocolitica PCR Not detected (Not detect) Stool Vibrio (PCR) Not detected (Not detect) Stl Vibrio cholerae PCR Not detected (Not detect) Stl Norovirus GI/GII PCR Not detected (Not detect) Stl GI Panel (PCR) Com See below Consult Discharge Plan - Plan Referrals: Jaspreet Curtis DO [Primary Care Provider] - - Attending Attestation I examined this patient and my medical decision-making was reviewed with the Resident Physician. I agree with the documented findings, disposition and treatment plan as described except to the extent set forth below. This is an addendum to original report dictated by resident physician. Please refer to residents note for full detail. Patient is a 46-year-old gentleman with no significant past medical history except for thyroid disease presented to [place] on 12/12 with nausea vomiting diarrhea that started on 12/10 in the afternoon. Patient also apparently was having a rash around the hands and her forearms abdomen and back so he presented to the emergency department for evaluation. Patient also lives in the [facility] and apparently has been exposed to ticks. Since admission, patient has been afebrile with a MAXIMUM TEMPERATURE of 98.9 Fahrenheit. Patient was tachycardic initially with a heart rate up to 119. Patient was also moderately tachypneic. Presenting labs revealed a WBC of 16.2 with neutrophil predominance of 80%. D-dimer was checked and it came back elevated at 3362. Chem-7 was obtained and revealed no acute kidney injury. CRP was mildly elevated at 10. Patient had a urinalysis done which was really not impressive. A Lyme antibody was obtained and came back negative. Patient had a CT chest which showed no evidence of pulmonary embolism or acute pulmonary abnormality. CT abdomen and pelvis was obtained with contrast that showed no definite evidence of acute intra-abdominal abnormality. There was persistent findings of fatty infiltrate of the liver and nonobstructive bilateral intrarenal calculi. I was called regarding this patient over the weekend and I was also concerned for possible tick bite versus salmonellosis versus enterohemorrhagic Escherichia coli. Based on the clinical picture that the explained to me over the phone I ordered stool for PCR and start the patient on doxycycline. A/P: Sepsis etiology not clear? Could be due to gastroenteritis vs other Acute gastroenteritis Rash etiology? DIC vs viral exanthema vs other? Inflammatory markers not elevated but D dimer 3362 Tick bite REcommenadtions: Repeat CBC in the Am to see if platelets continue to drop Tick bite no signs of a tick bite illness but it is sill possible; continue doxycycline Duration of treatment 7 days May d/c flagyl/Cipro at this time Aggressive hydration. Patient has 2 dogs and has chicken home. I would like to check salmonella
--- NOTE | 2017-12-13 10:10 | Electrophysiology Consult Note ---
<Pauline Carlson - Last Filed: 12/13/17 10:32> Date of Encounter: 12/13/17 Time of Encounter: 10:00 Assessment and Plan (1) Right bundle branch block Current Visit: Yes Status: Acute ECG shows RBBB, 114 BPM. new compared to prior ECG dated 2011. Possible rate dependent RBBB. Tachycardia likely secondary to gastroenteritis. No chest pain symptoms. Troponin negative. No further recommendations from EP as inpatient. Recommend outpatient follow-up with PCP. (2) Chest pain Current Visit: Yes Status: Acute Atypical chest pain. No ischemic ECG changes noted. Reports chest discomfort while dry heaving, does not appear to be cardiac in etiology. No further inpatient testing warranted, follow-up with PCP. Qualifiers: Chest pain type: chest pain on breathing Qualified Code(s): R07.1 - Chest pain on breathing; R07.81 - Pleurodynia (3) SIRS (systemic inflammatory response syndrome) Current Visit: Yes Status: Acute Likely secondary to acute gastroenteritis. Primary following. Patient reports symptom improvement. Discussion w patient/family: The assessment and plan as outlined above was discussed with the patient and/or family members who expressed understanding and agreement. All questions were answered. Thank you for involving us in the care of your patient. Please call with any questions. The patient will be discussed and reviewed with Dr. Rodriguez; changes to be made accordingly. History of Present Illness Consult date: 12/13/17 Requesting physician: Corinna Contreras Consult reason: ECG changes Chief complaint: Rash, N/V/D History of present illness: Mr. Vega is a 46 year old male with borderline DMII who presented to the ED with complaints of rash. Reports symptom onset a few hours prior to presentation. Reports 1-2 history of nausea, vomiting, and diarrhea prior to onset of rash. Reports chest discomfort with dry heaving/vomiting--otherwise no other CV symptoms. ECG upon arrival demonstrated RBBB, 114 BPM. CRP and WBC elevated. D-Dimer 3362 , CTA negative for PE. No prior CV testing reported. Past Med Surg Social Fam HX - Past Medical History Attestation: Yes The following information was validated with the patient. Source: patient Medical history: thyroid disease Additional medical history: arthritis, dergenative disk Psychiatric history: no psych history - Past Surgical History Surgical History: appendectomy - Social History Smoking Status: Former smoker Alcohol use: occasionally Drug use: none Medications and Allergies Levothyroxine [Synthroid] 75 mcg PO 0630 12/12/17 [History] Oxaprozin [Daypro] 600 mg PO BID 12/12/17 [History] Travoprost [Travatan Z] 1 drop OP DAILY 12/12/17 [History] 3 Allergy/AdvReac Type Severity Reaction Status Date / Time aspirin Allergy Hypertensio Verified 12/12/17 07:01 n All Systems Review: The remainder of the systems were reviewed and are negative - Cardiovascular Cardiovascular: as per HPI Physical Examination Vital Signs, Last 4 Hours Temp Pulse Resp BP Pulse Ox 12/13/17 06:54 97.7 F 73 16 126/76 95 General: Conversant, No Apparent Distress HEENT: Atraumatic, Normocephaly, Mucus Membranes Moist Cardiac: Reg Rate and Rhythm, Normal S1 and S2 Lungs: Normal Breath Sounds Neuro: Alert and responsive Abdomen: Soft Skin: No rashes noted on visualized skin Musculoskeletal: No Chest Wall Tenderness Extremities: No Edema, Normal Pulses Results 12/13/17 04:08 12/13/17 04:08 Lab Results 12/13/17 12/13/17 04:08 04:08 WBC 11.3 H Hgb 14.8 D Hct 42.8 Plt Count 234 Sodium 138 Potassium 3.5 Chloride 111 H Carbon Dioxide 21 L BUN 11 Creatinine 0.83 Glucose 122 H Calcium 8.1 L Magnesium 1.5 L Active Medications Diphenhydramine HCl (Benadryl) 25 mg IVP Q6HR PRN PRN Reason: Itching Stop: 06/13/18 10:34 Doxycycline Hyclate (Doxycycline) 100 mg PO BID [facility] Stop: 06/13/18 11:01 Last Admin: 12/13/17 07:51 Dose: 100 mg Heparin Sodium (Porcine) (Heparin) 5,000 unit SQ Q12HCO [facility] Stop: 06/14/18 06:31 Last Admin: 12/13/17 06:52 Dose: 5,000 unit Sodium Chloride (0.9 % Sodium Chloride) 1,000 mls @ 125 mls/hr IVC .Q8H [facility] Stop: 06/13/18 10:01 Last Admin: 12/13/17 07:51 Dose: 125 mls/hr Ciprofloxacin Lactate (Cipro Premix 400 Mg/200 Ml) 400 mg in 200 mls @ 200 mls/ hr IVPB Q12HR [facility] Stop: 06/13/18 18:01 Last Admin: 12/13/17 05:37 Dose: 200 mls/hr Metronidazole (Flagyl Premix 500 Mg/100 Ml) 500 mg in 100 mls @ 100 mls/hr IVPB Q8HR [facility] Stop: 06/13/18 16:01 Last Admin: 12/13/17 07:50 Dose: 100 mls/hr Morphine Sulfate (Morphine Sulfate) 1 mg IVP Q6HR PRN; Protocol PRN Reason: Analgesia Stop: 06/13/18 10:35 Naloxone HCl (Narcan) 0.4 mg IVP Q2MIN PRN PRN Reason: SEE COMMENTS Stop: 06/13/18 09:53 Ondansetron HCl (Zofran) 4 mg IVP Q6HR PRN; Protocol PRN Reason: Nausea And Vomiting Stop: 06/13/18 10:33 - Imaging and Cardiology Other Results: 12 hour tele: avg HR=84 SR. No events noted. - EKG Interpretation EKG results cardiology: personally reviewed Consult Discharge Plan - Plan Referrals: Jaspreet Curtis DO [Primary Care Provider] - <Joey Rodriguez - Last Filed: 12/13/17 11:39> Date of Encounter: 12/13/17 - Attending Attestation I have personally performed a face to face evaluation on this patient. I have reviewed and agree with the care plan. History and Exam by me shows: Presents with symptoms suggestive of viral syndrome. EKG showed RBBB which is new but likely tachycardia related. Doubt acute coronary syndrome. Assessment and Plan (1) Right bundle branch block Current Visit: Yes Status: Acute ECG shows RBBB, 114 BPM. new compared to prior ECG dated 2011. Possible rate dependent RBBB. Tachycardia likely secondary to gastroenteritis. No chest pain symptoms. Troponin negative. No further recommendations from EP as inpatient. Recommend outpatient follow-up with PCP. Discussion w patient/family: The assessment and plan as outlined above was discussed with the patient and/or family members who expressed understanding and agreement. All questions were answered. Thank you for involving us in the care of your patient. Please call with any questions. History of Present Illness History of present illness: Mr. Vega is a 46 year old male All Systems Review: The remainder of the systems were reviewed and are negative Physical Examination Vital Signs, Last 4 Hours Temp Pulse Resp BP Pulse Ox 12/13/17 10:58 98.2 F 72 20 142/80 95 General: Conversant, No Apparent Distress HEENT: Atraumatic, Normocephaly, Mucus Membranes Moist Neck: No JVD, Normal carotid pulses Cardiac: Reg Rate and Rhythm, Normal S1 and S2, No Murmur Lungs: Normal Breath Sounds, No Wheeze, Rales, Rhonchi Neuro: Alert and responsive, No focal deficits noted Abdomen: Soft, Non-Tender Musculoskeletal: No Chest Wall Tenderness Results 12/13/17 04:08 12/13/17 04:08 Lab Results 12/13/17 12/13/17 04:08 04:08 WBC 11.3 H Hgb 14.8 D Hct 42.8 Plt Count 234 Sodium 138 Potassium 3.5 Chloride 111 H Carbon Dioxide 21 L BUN 11 Creatinine 0.83 Glucose 122 H Calcium 8.1 L Magnesium 1.5 L
[2017-12-13] MEDS ORDERED: Acetaminophen 325 MG TABLET PO PRN (11:55)
--- NOTE | 2017-12-13 14:50 | Internal Med Progress Note ---
Date of Encounter: 12/13/17 Time of Encounter: 13:00 - Assessment and plan (1) SIRS (systemic inflammatory response syndrome) Current Visit: Yes Status: Acute Assessment and plan: Tachycardia had resolved and leukocytosis improved after IVF and initiation of Abx Uncertain exact etiology of gastroenteritis. Rash concerning for possible tick- borne disease although Lyme testing had been negative so far. No longer meet SIRS criteria. resolved. (2) Acute gastroenteritis Current Visit: Yes Status: Acute Assessment and plan: Symptoms had resolved. No more diarrhea or N/V. Reported suspicious food intake. Likely viral. IVF support. All symptoms resolved. (3) Rash and nonspecific skin eruption Current Visit: Yes Status: Resolved Assessment and plan: Rash on trunk as well as palm and soles reported at home. Quickly resolved after antihistamine and prednisone in ED. Lyme testing so far negative. Has reported findings ticks, but none attached to his body. Unsure etiology at this time. Continue with doxycycline. Infectious Disease following. (4) ST segment depression Current Visit: Yes Status: Acute Assessment and plan: Initial EKG with RBBB and tachycardia as reviewed by EP. Tachycardia likely 2/2 dehydration from gastroenteritis symptoms. Had now resolved. No chest pain, Troponin negative. No further intervention by EP at this time. Can follow with PCP outpatient. (5) Thyroid disease Current Visit: Yes Status: Acute Assessment and plan: Unclear history of thyroid disease TSH WNL. Asymptomatic. continue to monitor. (6) Erythrocytosis Current Visit: Yes Status: Resolved Assessment and plan: Resolved. Secondary to severe dehydration from fluid loss diarrhea and n/v. - Time Spent With Patient Total time spent is greater than 50% in coordination of care (as documented) at patient's floor/unit and/or counseling patient: - Subjective Interval history: Reports feeling well today denying any complaints. Stated that the diarrhea had resolved as well as nausea and vomiting. Feels much better since he came in and got IVF. - Constitutional Vitals: Temp Pulse Resp BP Pulse Ox 98.2 F 72 20 142/80 95 12/13/17 10:58 12/13/17 10:58 12/13/17 10:58 12/13/17 10:58 12/13/17 10:58 Exam: General: Alert and oriented. Obese. Skin: Normal color, few red spots on chest, no gaffney lesions. HEENT: EOMI, pupils equal, round and reactive. Cardiovascular: Regular rate, regular rhythm. No murmurs appreciated. Lungs:Normal breath sounds, no wheezes or crackles. Abdomen:Soft, non-tender, no rigidity. Obese. Extremities:No deformity, no edema or tenderness, no joint swelling or clubbing. Neurological:Normal cognition, no weakness, no numbness. Rest of the physical exam is non contributory Internal Medicine: Result - Labs CBC & Chem 7: 12/13/17 04:08 12/13/17 04:08 Labs: Short CBC 12/13/17 Range/Units 04:08 WBC 11.3 H (4.3-11.1) K/mcL Hgb 14.8 D (12.9-16.9) g/dL Hct 42.8 (37.5-50.1) % Plt Count 234 (140-400) K/mcL Neutrophils # 6.6 (1.6-8.9) K/mcL BMP 12/13/17 04:08 Sodium 138 Potassium 3.5 Chloride 111 H Carbon Dioxide 21 L BUN 11 Creatinine 0.83 Glucose 122 H Calcium 8.1 L - ABG Interpretation ABG results: PT/INR, D-dimer D-Dimer 3362 ng/mLFEU (0-500) H 12/12/17 07:14 - Impressions Impressions Abdomen/Pelvis CT 12/12/17 13:30 IMPRESSION: 1. No definite evidence of acute intra-abdominal abnormality. No evidence of bowel obstruction, intraperitoneal free air, or abscess. 2. Persistent findings consistent with changes of fatty infiltration of the liver. 3. Persistent finding of nonobstructing bilateral intrarenal calculi. D/ / 12/12/2017 14:59:08 Arjun Mota MD / [email or web address] Interpreting Provider: Arjun Mota MD Consult Discharge Plan - Plan Referrals: Jaspreet Curtis DO [Primary Care Provider] -
--- NOTE | 2017-12-13 23:17 | Electrocardiograph Report ---
[facility] Test Date: 2017-12-12 Pat Name: Guanaco Vega Department: 104 Room: 2A72 Gender: M [employer]: AM : 1970 Requested By: Brodie Jenkins Order Number: [id number] Reading MD: Alison Vigil Measurements Intervals [place] Rate: 94 P: 5 MT: 142 QRS: 33 QRSD: 119 T: 1 QT: 350 QTc: 402 Interpretive Statements SINUS RHYTHM INCOMPLETE RIGHT BUNDLE BRANCH BLOCK NONSPECIFIC T-WAVE ABNORMALITY Electronically Signed On 12-13-2017 23:15:27 EDT by Alison Vigil
[2017-12-14] MEDS: MetroNIDAZOLE 500 MG/100 ML 500 MG/100 ML BAG IVPB SCH ×2 (00:14→07:22)
[2017-12-14] MEDS: 0.9 % Sodium Chloride 1,000 ML IVC SCH (05:07)
[2017-12-14] MEDS: *HR* Heparin 5,000 UNIT/ML VIAL SQ SCH (05:08)
[2017-12-14 05:38] LABS: Basophils % 0.1 %; Eosinophils # 0.7 K/mcL (0.0-0.6); Eosinophils % 9.6 %; Hemoglobin 14.4 g/dL (12.9-16.9); Immature Granulocytes % 0.3 % (0-4); Lymphocytes # 2.1 K/mcL (0.6-4.6); Lymphocytes % 29.9 %; Mean Corpuscular HGB Conc 35.1 g/dL (31.6-35.5); Mean Corpuscular Hemoglobin 32.1 pg (28.0-33.3); Mean Corpuscular Volume 91.5 fL (83.0-100.0); Monocytes # 0.5 K/mcL (0.0-1.3); Monocytes % 7.6 %; Neutrophils # 3.6 K/mcL (1.6-8.9); Platelet Count 195 K/mcL (140-400); Red Blood Count 4.48 M/mcL (4.19-5.50); Red Cell Distribution Width 12.9 % (11.5-14.5); Segmented Neutrophils % 52.5 %
[2017-12-14 05:52] LABS: Alanine Aminotransferase 46 Units/L (7-52); Albumin 3.3 g/dL (3.5-5.7); Albumin/Globulin Ratio 1.7 (1.1-2.2); Alkaline Phosphatase 54 Units/L (34-104); Aspartate Amino Transferase 28 Units/L (13-39); BUN/Creatinine Ratio 7 (6-26); Bilirubin,Total 0.4 mg/dL (0.3-1.0); Blood Urea Nitrogen 6 mg/dL (6-20); Carbon Dioxide 24 mEq/L (23-29); Chloride 109 mEq/L (98-107); Globulin 1.9 g/dL (2.4-3.5); Glucose 119 mg/dL (70-105); Osmolality,Calculated 289 (280-300); Potassium 3.3 mEq/L (3.5-5.1); Sodium 140 mEq/L (136-145); Total Protein 5.2 g/dL (6.4-8.9); eGFR For African Americans > 60 (> 60); eGFR For Non-African Americans > 60 (> 60)
[2017-12-14] MEDS: Doxycycline 100 MG CAPSULE PO SCH (07:22)
--- NOTE | 2017-12-14 09:50 | Electrocardiograph Report ---
[address] [address] Test Date: 2017-12-12 Pat Name: Guanaco Vega Department: 104 Room: [facility] Gender: M Cr[employer]: AM : 1970 Requested By: Reny See Order Number: [id number] Reading MD: Eliel Redmond Measurements Intervals [place] Rate: 114 P: 3 TN: 124 QRS: 59 QRSD: 119 T: -5 QT: 335 QTc: 403 Interpretive Statements SINUS TACHYCARDIA INCOMPLETE RIGHT BUNDLE BRANCH BLOCK Electronically Signed On 12-14-2017 9:48:27 EDT by Eliel Redmond
--- NOTE | 2017-12-14 10:11 | Infectious Disease Progress No ---
Date of Encounter: 12/14/17 Time of Encounter: 10:10 - Assessment and Plan (1) Sepsis Current Visit: Yes Status: Acute 2/4 SIRS criteria on admission; leukocytosis 16.2, tachycardia - Unknown source at this time; possible gastroenteritis - Stool panel was negative; Stool PCR, r/o EHEC vs salmonella typhii - 3 sets of blood CX are pending - Currently on doxycycline 100 mg PO BID and Flagyl 500 mg IV Q8; day 3 of antibiotics Qualifiers: Sepsis type: sepsis due to unspecified organism Qualified Code(s): A41.9 - Sepsis, unspecified organism (2) Acute gastroenteritis Current Visit: Yes Status: Acute - CT scan of the abdomen and pelvis demonstrated changes associated with fatty liver disease - No acute abdominal process was found - Stool panel negative (3) Rash and nonspecific skin eruption Current Visit: Yes Status: Resolved Patient presented with a rash on the trunk and upper extremities; etiology unknown - He reports that he lives in the [facility]; admits to finding several ticks on his person - He is unsure if he was bitten - In the emergency department, patient was given prednisone and antihistamines; rash subsequently improved - Lyme titers have been negative - Continue doxycycline (4) ST segment depression Current Visit: Yes Status: Acute EKG performed in the emergency department demonstrated mild ST depression noted in leads 2, aVF, V3 through V6; Right bundle branch block was present; no ST elevation present, Sinus tachycardia - Cardiology is consulted (5) Thyroid disease Current Visit: Yes Status: Acute - Management per primary team Infect Dis PN-Objective Data - Labs CBC & Chem 7: 12/14/17 04:41 12/14/17 04:41 Labs: Laboratory Results - last 24 hr 12/14/17 12/14/17 04:41 04:41 WBC 6.9 RBC 4.48 Hgb 14.4 Hct 41.0 MCV 91.5 MCH 32.1 MCHC 35.1 RDW 12.9 Plt Count 195 MPV 10.0 Immature Gran % 0.3 Seg Neutrophils % 52.5 Lymphocytes % 29.9 Monocytes % 7.6 Eosinophils % 9.6 Basophils % 0.1 Neutrophils # 3.6 Lymphocytes # 2.1 Monocytes # 0.5 Eosinophils # 0.7 H Basophils # 0.0 Sodium 140 Potassium 3.3 L Chloride 109 H Carbon Dioxide 24 BUN 6 Creatinine 0.81 Est GFR ( Amer) > 60 Est GFR (Non-Af Amer) > 60 BUN/Creatinine Ratio 7 Glucose 119 H Calculated Osmolality 289 Calcium 8.0 L Total Bilirubin 0.4 AST 28 ALT 46 Alkaline Phosphatase 54 Serum Total Protein 5.2 L Albumin 3.3 L Globulin 1.9 L Albumin/Globulin Ratio 1.7 Cultures: Serology 12/12/17 Range/Units 22:38 Stl C. cayetanensis PCR Not detected (Not detect) Stool Rotavirus A PCR Not detected (Not detect) Stl Adenov F 40/41 PCR Not detected (Not detect) Stool Astrovirus (PCR) Not detected (Not detect) Stool Campylobacter PCR Not detected (Not detect) Stl C. diff Tox A/B PCR Not detected (Not detect) Stool Cryptosporidium PCR Not detected (Not detect) Stl Sh Tox Pr E STEC PCR Not detected (Not detect) Stool E coli O157 PCR Not detected (Not detect) Stl Enterotoxigenic E PCR Not detected (Not detect) Stool EPEC (PCR) Not detected (Not detect) Stool EAEC (PCR) Not detected (Not detect) Stl E. histolytica PCR Not detected (Not detect) Stool Giardia Lamblia PCR Not detected (Not detect) Stool Salmonella PCR Not detected (Not detect) Stool Sapovirus (PCR) Not detected (Not detect) Stl P. shigelloides PCR Not detected (Not detect) Stl Shigella/EIEC PCR Not detected (Not detect) St Y.enterocolitica PCR Not detected (Not detect) Stool Vibrio (PCR) Not detected (Not detect) Stl Vibrio cholerae PCR Not detected (Not detect) Stl Norovirus GI/GII PCR Not detected (Not detect) Stl GI Panel (PCR) Com See below Exam - Constitutional Vitals: Temp Pulse Resp BP Pulse Ox 98.0 F 64 20 152/88 95 12/14/17 07:07 12/14/17 07:07 12/14/17 07:07 12/14/17 07:07 12/14/17 07:07 Consult Discharge Plan - Plan Referrals: Jaspreet Curtis DO [Primary Care Provider] -
[2017-12-14 10:47] VITALS: BP 149/97
--- NOTE | 2017-12-14 12:03 | Discharge Summary ---
Orders not resulted at time of discharge: Pending orders 12/15/17 04:00 BMP [Basic Metabolic Panel] AM 0400 Complete Blood Count [HEME] AM 0400 Date of Encounter: 12/14/17 Time of Encounter: 11:00 - Discharge Diagnosis (1) Sepsis Priority: Primary Status: Acute Assessment and Plan: Presented with SIRS with suspected source of gastroenteritis meeting sepsis criteria, pending blood cultures Considered tick borne illness however all labs have been negative so far. Has been on antibiotics and supportive care with complete resolution of symptoms Has been on Flagyl and doxycycline, followed by ID. Will discharge patient to complete course of antibiotics. Will discharge with doxycycline to complete 10 day course. Qualifiers: Sepsis type: sepsis due to unspecified organism Qualified Code(s): A41.9 - Sepsis, unspecified organism (2) Rash and nonspecific skin eruption Priority: Secondary Status: Resolved Assessment and Plan: Rash on trunk as well as palm and soles reported at home. Quickly resolved after antihistamine and prednisone in ED. Lyme testing so far negative. Has reported findings ticks, but none attached to his body. Rash and all symptoms have resolved so far. Will discharge to complete course of Doxycycline (3) ST segment depression Priority: Secondary Status: Acute Assessment and Plan: Initial EKG with RBBB and tachycardia as reviewed by EP. Tachycardia likely 2/2 dehydration from gastroenteritis symptoms. Had now resolved. No chest pain, Troponin negative. No further intervention by EP at this time. Can follow with PCP outpatient. (4) Thyroid disease Priority: Secondary Status: Chronic Assessment and Plan: Unclear history of thyroid disease TSH WNL. Asymptomatic. continue to monitor. (5) Erythrocytosis Priority: Secondary Status: Resolved Assessment and Plan: Resolved. Secondary to severe dehydration from fluid loss diarrhea and n/v. Hospital course: Mr. Vega is a 46 year old male with PMH thyroid disease presented to the ED with complaints of nausea, vomiting, diarrhea and diffuse rash. Met 2 sirs criteria with suspicion for gastroenteritis source of infection and was treated for sepsis. Symptoms recovered quickly after suppportive care as well as antibiotics. Lyme serology was negative and all stool study also showed no significant findings. Patient reported complete recover. Will discharge patient home to follow up with PMD and complete 10 day course of doxycycline. Has been on day 3 and will need 7 more days starting 12/15/17. Discharge discussed with: patient, family, nurse - Time Spent with Patient Total time spent providing and/or coordinating discharge services: - Discharge Medications Prescriptions: Doxycycline 100 mg PO BID 7 Days #14 capsule Home Medications: Levothyroxine [Synthroid] 75 mcg PO 30 12/12/17 [History] Oxaprozin [Daypro] 600 mg PO BID 12/12/17 [History] Travoprost [Travatan Z] 1 drop OP DAILY 12/12/17 [History] Doxycycline 100 mg PO BID 7 Days #14 capsule 12/14/17 [Rx] Allergies/Adverse Reactions: 3 Allergy/AdvReac Type Severity Reaction Status Date / Time aspirin Allergy Hypertensio Verified 12/12/17 07:01 n Date of admission: 12/12/17 10:54 Primary care physician: Jaspreet Curtis, - Constitutional Vitals: Temp Pulse Resp BP Pulse Ox 98.1 F 73 18 149/97 95 12/14/17 10:45 12/14/17 10:45 12/14/17 10:45 12/14/17 10:45 12/14/17 10:45 Exam: General: Alert and oriented. Obese. Skin: Normal color, few red spots on chest, no gaffney lesions. HEENT: EOMI, pupils equal, round and reactive. Cardiovascular: Regular rate, regular rhythm. No murmurs appreciated. Lungs:Normal breath sounds, no wheezes or crackles. Abdomen:Soft, non-tender, no rigidity. Obese. Extremities:No deformity, no edema or tenderness, no joint swelling or clubbing. Neurological:Normal cognition, no weakness, no numbness. Rest of the physical exam is non contributory - Patient Status Disposition: Home, Self-Care Condition: Good Overall status at discharge: patient is progressing back to baseline - Discharge Instructions Follow Up With: Jaspreet Curtis DO [Primary Care Provider] - - Diet and Activity Activity: resume usual activities as tolerated
[2017-12-14] MEDS ORDERED: metroNIDAZOLE 500 MG TABLET PO SCH (15:00)
== END 2017-12-14 13:13 | disposition home or self-care (01) | DRG 872 ==
LOC: EMEROO 06:59 → 2ANU 06:59 → SUATTDRO 10:54
PROVIDERS: ADMIT Student in an Organized Health Care Education/Training Program; ATTEND Student in an Organized Health Care Education/Training Program

== ENCOUNTER 2022-03-22 17:39 | Observation (INO) ==
[2022-03-22] MEDS ORDERED: Iopamidol - 370 500 ML MLS IVP ONE (22:13)
[2022-03-22 22:36] LABS: Hematocrit 39.8 % (37.5-50.1); Hemoglobin 13.9 g/dL (12.9-16.9); Mean Corpuscular HGB Conc 34.9 g/dL (31.6-35.5); Mean Corpuscular Hemoglobin 31.8 pg (28.0-33.3); Mean Corpuscular Volume 91.1 fL (83.0-100.0); Mean Platelet Volume 10.1 fL (9.4-12.4); Platelet Count 325 K/mcL (140-400); Red Blood Count 4.37 M/mcL (4.19-5.50); Red Cell Distribution Width 12.4 % (11.5-14.5)
[2022-03-22 22:46] LABS: Prothrombin Time 10.9 Seconds (9.4-12.1)
[2022-03-22 22:57] LABS: BUN/Creatinine Ratio 15 (6-26); Blood Urea Nitrogen 18 mg/dL (6-20); Calcium 9.6 mg/dL (8.6-10.3); Carbon Dioxide 25 mEq/L (23-29); Chloride 105 mEq/L (98-107); Ethanol < 10 mg/dL (Less than 10); Glucose 161 mg/dL (70-105); Osmolality,Calculated 291 (280-300); Potassium 3.9 mEq/L (3.5-5.1); Sodium 138 mEq/L (136-145)
[2022-03-22 22:58] LABS: Troponin I < 0.03 ng/mL (< 0.04)
[2022-03-22 23:17] LABS: Bilirubin,Urine Negative (Negative); Blood,Urine Moderate (Negative); Calcium Oxalate Crystals,Urine Present per hpf; Clarity,Urine Clear (Clear); Color,Urine Light-Yellow (Yellow); Glucose,Urine (UA) Normal (Normal); Ketones,Urine Negative (Negative); Leukocyte Esterase,Urine Moderate (Negative); Mucus,Urine Many per lpf (None-Few); Nitrite,Urine Negative (Negative); Protein,Urine 30 mg/dL (Neg-Trace); RBC,Urine 50-100 per hpf (0-3); Specific Gravity,Urine > 1.030 (1.010-1.025); Squamous Epithelial Cell,Urine Few per hpf (None-Few); Urobilinogen,Urine Normal (Normal); WBC,Urine 50-100 per hpf (0-3)
[2022-03-22 23:29] LABS: Amphetamine Screen,Urine Negative ng/mL (Cutoff=1000); Barbiturate Screen,Urine Negative ng/mL (Cutoff=200); Benzodiazepines Screen,Urine Positive ng/mL (Cutoff=200); Cannabinoid Screen,Urine Negative ng/mL (Cutoff = 50); Cocaine Screen,Urine Negative ng/mL (Cutoff= 300); Opiate Screen,Urine Negative ng/mL (Cutoff=300); Phencyclidine Screen,Urine Negative ng/mL (Cutoff=25)
[2022-03-22] MEDS ORDERED: Melatonin 3 MG TABLET PO PRN (23:34)
[2022-03-22] MEDS ORDERED: Ondansetron ODT 4 MG TAB.RAPDIS SL PRN (23:34)
[2022-03-22] MEDS ORDERED: Naloxone 0.4 MG/ML INJ IVP PRN (23:34)
[2022-03-23] MEDS ORDERED: Dextrose Gel 15 GM/37.5 ML TUBE PO PRN ×2 (00:04)
[2022-03-23] MEDS ORDERED: D5% in Water 1,000 ML IVC PRN (00:04)
[2022-03-23] MEDS ORDERED: *HR* Dextrose 50 % in Water (Syg) 50 ML SYRINGE IVP PRN (00:04)
[2022-03-23] MEDS ORDERED: Insulin LISPRO 300 UNITS/3 ML VIAL SUBQ SCH (00:15)
[2022-03-23] MEDS ORDERED: cefTRIAXone 1,000 MG in Water for inj. (sterile) 10 ML IVP ONE (00:23)
[2022-03-23 05:05] LABS: Hematocrit 38.6 % (37.5-50.1); Hemoglobin 12.9 g/dL (12.9-16.9); Mean Corpuscular HGB Conc 33.4 g/dL (31.6-35.5); Mean Corpuscular Hemoglobin 30.6 pg (28.0-33.3); Mean Corpuscular Volume 91.7 fL (83.0-100.0); Platelet Count 286 K/mcL (140-400); Red Blood Count 4.21 M/mcL (4.19-5.50); Red Cell Distribution Width 12.3 % (11.5-14.5); White Blood Count 7.9 K/mcL (4.3-11.1)
[2022-03-23 05:07] LABS: Estimated Average Glucose 151 mg/dl; Hemoglobin A1C 6.9 %
[2022-03-23 05:27] LABS: Alanine Aminotransferase 51 Units/L (7-52); Albumin 3.9 g/dL (3.5-5.7); Albumin/Globulin Ratio 1.5 (1.1-2.2); Alkaline Phosphatase 62 Units/L (34-104); Aspartate Amino Transferase 28 Units/L (13-39); BUN/Creatinine Ratio 15 (6-26); Bilirubin,Total 0.3 mg/dL (0.3-1.0); Blood Urea Nitrogen 18 mg/dL (6-20); Carbon Dioxide 27 mEq/L (23-29); Chloride 103 mEq/L (98-107); Chol/HDL Ratio 4.8 (0-4.9); Cholesterol 153 mg/dL (< 200); Globulin 2.6 g/dL (2.4-3.5); Glucose 139 mg/dL (70-105); HDL Cholesterol 32 mg/dL (40-59); LDL Cholesterol,Calculated 85 mg/dL (< 100); Osmolality,Calculated 290 (280-300); Potassium 3.4 mEq/L (3.5-5.1); Sodium 138 mEq/L (136-145); Total Protein 6.5 g/dL (6.4-8.9); Triglycerides 178 mg/dL (< 150); Troponin I < 0.03 ng/mL (< 0.04)
[2022-03-23 05:28] LABS: Magnesium 1.5 mg/dL (1.6-2.6); Phosphorous 4.4 mg/dL (2.7-4.5)
[2022-03-23 05:36] LABS: Thyroid Stimulating Hormone 3.963 mcIU/mL (0.340-5.600)
[2022-03-23 05:47] LABS: Folate 18.1 ng/mL (3.0-16.0)
[2022-03-23] MEDS: Insulin LISPRO 300 UNITS/3 ML VIAL SUBQ SCH ×3 (08:12→17:12)
[2022-03-23] MEDS ORDERED: Magnesium Oxide 400 MG TABLET PO ONE (15:21)
[2022-03-23] MEDS ORDERED: OXAPROZIN 600 MG PO PRN (15:26)
[2022-03-23] MEDS ORDERED: Diclofenac Sodium (24 HR) 100 MG TABLET PO PRN (15:30)
[2022-03-23 15:34] VITALS: BP 165/93
[2022-03-23] MEDS ORDERED: Lisinopril-HCTZ 20-12.5mg TABLET PO SCH (15:45)
[2022-03-23 16:19] VITALS: PULSE 74; TEMP 96.9; O2SAT 100
[2022-03-23] MEDS ORDERED: Latanoprost 2.5 ML BOTTLE BOTH EYES SCH (21:00)
[2022-03-23] MEDS ORDERED: *HR* Heparin 5,000 UNIT/ML VIAL SQ SCH (22:00)
[2022-03-24] MEDS ORDERED: Multivit/Ca/Min/Fe/FA 1 TAB TABLET PO SCH (09:00)
== END 2022-03-23 18:55 | disposition home or self-care (01) ==
LOC: EMEROOARM 17:39 → 2NENU 17:39 → SUATTDRO 23:35 → 2NENU 03-23 00:22
PROVIDERS: ADMIT Internal Medicine; ATTEND Internal Medicine